=== PATIENT | male | born 1995 ===

== ENCOUNTER 2017-01-28 18:18 | Emergency (ER) | payer BC ==
[2017-01-28 18:32] VITALS: BP 183/88
--- NOTE | 2017-01-28 22:01 | UC ---
Complaint Male HPI - HPI Summary HPI Summary: PATIENT PRESENTS WITH LEFT SIDED TESTICULAR PAIN WITH PALPABLE MASS X 2 DAYS. HE DENIES FEVER, CHILLS OR SWEATS. HE DENIES CHANCE OF STD'S STATING HE HAS ONLY HAD UNPROTECTED ORAL SEX WITH A NEW PARTNER AND DENIES HISTORY OF STD'S. HE NOTES TO A DISCOLORATION OF A PROMINENT VEIN SUPERIOR TO THE TESTICLE A FEW DAYS AGO WHICH HAS SINCE RESOLVED. HE FEELS WORSE WITH STANDING AND BETTER WITH SITTING. 2/10 PAIN IS LOCATED IN THE LEFT TESTICLE AND RADIATES TO THE LEFT GROIN AND SUPRAPUBIC AREA. HE DENIES URINARY SYMPTOMS. HE DENIES TENDERNESS OVER THE SCORTAL SAC AND REDNESS OR DRAINAGE. HE ENDORSES CLEAR DISCHARGE RESEMBLING SEMEN FROM THE PENIS, BUT THIS WAS 1X AFTER PALPATING THE AREA FOR 5-10 MINUTES AND FEELS IT MIGHT BE FROM THE MANIPULATION. DENIES ANY PAIN IN THE SHAFT OF THE PENIS. DENIES BACK PAIN. - History of Current Complaint Chief Complaint: [facility] Stated Complaint: TESTICULAR PAIN Time Seen by Provider: 01/28/17 18:52 Hx Obtained From: Patient Onset/Duration: Sudden Onset Timing: Constant Severity Initially: Mild Severity Currently: Mild Pain Intensity: 2 Pain Scale Used: 0-10 Numeric Location: Testicle Character: Sharp, Constant Pressure Aggravating Factor(s): Nothing - PAIN IS NOT WORSE WITH PALPATION, BUT IS WORSE WITH GRAVITY Alleviating Factor(s): Scrotal Elevation Associated Signs And Symptoms: Positive: Negative, Penile Discharge - CLEAR - Risk Factors Testicular Torsion: Negative - Allergies/Home Medications Allergies/Adverse Reactions: Allergies Allergy/AdvReac Type Severity Reaction Status Date / Time No Known Allergies Allergy Verified 01/28/17 18:33 Home Medications: Home Medications NK [No Home Medications Reported] 01/28/17 [History Confirmed 01/28/17] PMH/Surg Hx/FS Hx/Imm Hx Previously Healthy: Yes Endocrine History Of: Denies: Diabetes, Thyroid Disease Cardiovascular History Of: Denies: Cardiac Disorders, Hypertension Respiratory History Of: Denies: COPD, Asthma GI/ History Of: Denies: Ulcer - Surgical History Surgical History: Yes Surgery Procedure, Year, and Place: cyst removed from back - Family History Known Family History: Positive: Unknown - Social History Occupation: Unemployed Lives: With Family Alcohol Use: Weekly Substance Use Type: Marijuana Smoking Status (MU): Never Smoked Tobacco Have You Smoked in the Last Year: No Review of Systems Constitutional: Negative Skin: Negative Respiratory: Negative Cardiovascular: Negative Gastrointestinal: Negative Genitourinary: Other - SCROTAL TENDERNESS Neurological: Negative Psychological: Negative All Other Systems Reviewed And Are Negative: Yes Physical Exam Triage Information Reviewed: Yes Appearance: Well-Appearing, Well-Nourished Vital Signs: Initial Vital Signs Temp 98.3 F 01/28/17 18:28 Pulse 95 01/28/17 18:28 Resp 16 01/28/17 18:28 BP 183/88 01/28/17 18:28 Pulse Ox 98 01/28/17 18:28 Vital Signs Reviewed: Yes Eye Exam: Normal Neck: Positive: Supple, No Lymphadenopathy Respiratory Exam: Normal Respiratory: Positive: Chest non-tender, Lungs clear Abdomen Description: Positive: Nontender, Soft Complaint Male Course/Dx - Course Course Of Treatment: Patient presents with left testicular pain x 2 days which radiates to the groin on the ipsilateral side. On physical exam the epidydimus and spermatic cord are without tenderness or masses. Positive bilateral cremaster reflex. No abnnormal elevation of the L testicle or shortening of the spermatic cord. No scrotal erythema bilaterally. Positive Prehn's sign. No evidence of hydrocele or varicocele on examination. Small palpable mass appreciated in the left testes. no drainage or discharge from the penis. Afebrile. US is not available at this time. D/t low suspcian for testicular torsion based on the timing and physical exam findings, provider discussed with patient following up with urology tomorrow. He agrees. He understands to go to the ED immediately if worsening pain or discoloration develops. Will refer him to Dr. Vargas and Dr. Franco's office tomorrow. - Differential Dx/Diagnosis Differential Diagnosis/HQI/PQRI: Epididymitis, Cancer, Testicular Torsion Provider Diagnoses: Testicular Pain Discharge - Discharge Plan Condition: Stable Disposition: HOME Patient Education Materials: Testicular Torsion (ED), Varicocele (ED), Testicle Pain (ED), Scrotal Pain (ED) Referrals: Non Staff,Doctor [Primary Care Provider] - Mani Vargas MD [Medical Doctor] - Craig Franco MD [Medical Doctor] - Additional Instructions: FOLLOW UP WITH DR. FRANCO OR DR. VARGAS TOMORROW IF THEY ARE UNABLE TO SEE YOU TOMORROW, YOU MAY COME TO THE EMERGENCY ROOM FOR EVALUATION. IF ANYTHING BECOMES WORSE, GO TO ED IMMEDIATELY. YOU MAY TAKE TYLENOL FOR ANY DISCOMFORT.
== END 2017-01-28 20:01 | disposition home or self-care (01) ==
LOC: UCEAST 18:18
DX: N50.812 Left testicular pain (principal); Z11.4 Encounter for screening for human immunodeficiency virus [HIV]
CPT/HCPCS: 36415; 87389; 99201; G0463; G0475